=== PATIENT | female | born 2005 | race Caucasian/White ===

== ENCOUNTER 2024-02-16 13:38 | Outpatient (CLI) | payer BC, SELFPAY ==
[2024-02-20 07:59] LABS: HSV 1 Subtype by PCR Detected; HSV 2 Subtype by PCR Not Detected; Herpes Simplex Subtype Source Vesicle
== END 2024-02-16 13:39 | disposition home or self-care (01) ==
PROVIDERS: Visit Provider Physician Assistant
DX: R30.0 Dysuria (principal); R21 Rash and other nonspecific skin eruption; N76.0 Acute vaginitis
CPT/HCPCS: 87086; 87529